=== PATIENT | male | born 2000 | race Hispanic/Latino ===

== ENCOUNTER 2023-09-20 22:31 | Emergency (ER) | payer OTHER, SELFPAY ==
[2023-09-20] MEDS ORDERED: Acetaminophen 500 MG TAB ONE (22:53)
[2023-09-20] MEDS ORDERED: Ondansetron ODT 4 MG TAB ONE (22:54)
[2023-09-20 23:40] LABS: SARS-CoV-2 NAA Rapid Test Not Detected (NotDetected)
== END 2023-09-21 00:19 | disposition home or self-care (01) ==
LOC: ERS 22:31
DX: B34.9 Viral infection, unspecified (principal)
CPT/HCPCS: 99283; Q0162

== ENCOUNTER 2024-03-12 12:16 | Emergency (ER) | payer SELFPAY | END 2024-03-12 13:18 | disposition home or self-care (01) | LOC: ERS 12:16 | DX: B35.4 Tinea corporis (principal); F17.200 Nicotine dependence, unspecified, uncomplicated | CPT/HCPCS: 99282 ==